=== PATIENT | male | born 1975 | race Caucasian/White ===

== ENCOUNTER → 2019-11-30 | Outpatient (CLI) | payer OTHER ==
--- NOTE | 2019-11-30 13:00 | CARD ---
MR#: [id number] Date of Study: 11/30/2019 Ordering Physician: LIZA CALVILLO, Referring Physician: LIZA CALVILLO, Tech: Zehra Corley APPROVED REPORT EXAM: Two-dimensional and M-mode echocardiogram with Doppler and color Doppler. Other Information Quality : AverageHR: 55bpm Technically limited study due to body habitus. INDICATION Premature ventricular contraction RISK FACTORS Hypertension 2D DIMENSIONS Left Atrium(2D)3.9 (1.6-4.0cm)IVSd1.3 (0.7-1.1cm) Aortic Root(2D)3.7 (2.0-3.7cm)LVDd5.9 (3.9-5.9cm) LVOT Diameter2.3 (1.8-2.4cm)PWd1.3 (0.7-1.1cm) LVDs3.4 (2.5-4.0cm)FS (%) 42.6 % SV127.5 mlLVEF(%)72.8 (>50%) Aortic Valve AoV Peak Diego.96.1cm/sAoV VTI25.8cm AO Peak GR.3.7mmHgLVOT Peak Diego.86.9cm/s LVOT VTI 21.93cmAO Mean GR.2mmHg REGI (VMAX)2.67bk3JHU (VTI)3.51cm2 Mitral Valve MV E Gucceprx90.8cm/sMV DECEL FMQU634cj MV A Hxsbugjg10.1cm/sMV E Mean Gr.1mmHg MV WHI82hjP/A Ratio1.6 MVA (PHT)3.27cm2 TDI E/Lateral E'9.3E/Medial E'10.5 Pulmonary Valve PV Peak Cixptfww23.2cm/sPV Peak Grad.3mmHg Tricuspid Valve TR P. Cipibwat142qj/sRAP YLORTRYJ8dsYy TR Peak Gr.31xkHoLSBW01sqCx Pulmonary Vein S1 Jlwtvbgb54.3cm/sD2 Gammtzru43.9cm/s PVa nhfhbfom666wllh LEFT VENTRICLE The left ventricle is normal size. There is moderate concentric left ventricular hypertrophy. The lef t ventricular systolic function is normal. The Ejection Fraction is 55-60%. There is normal LV segmen zane wall motion. The left ventricular diastolic function and filling is normal for age. RIGHT VENTRICLE The right ventricle is normal size. There is normal right ventricular wall thickness. The right ventr icular systolic function is normal. ATRIA The left atrium size is normal. The right atrium size is normal. The interatrial septum is intact wit h no evidence for an atrial septal defect or patent foramen ovale as noted on 2-D or Doppler imaging. AORTIC VALVE The aortic valve is normal in structure and function. Doppler and Color Flow revealed trace aortic re gurgitation. There is no significant aortic valvular stenosis. MITRAL VALVE The mitral valve is normal in structure and function. There is no evidence of mitral valve prolapse. There is no mitral valve stenosis. Doppler and Color-flow revealed trace mitral regurgitation. TRICUSPID VALVE The tricuspid valve is normal in structure and function. Doppler and Color Flow revealed trace tricus pid regurgitation with an estimated PAP of 31 mmHg. There is no tricuspid valve stenosis. PULMONIC VALVE The pulmonic valve is not well visualized. Doppler and Color Flow revealed no pulmonic valvular regur gitation. GREAT VESSELS The aortic root is normal in size. The IVC is normal in size and collapses >50% with inspiration. PERICARDIAL EFFUSION There is no evidence of significant pericardial effusion. Critical Notification Critical Value: No <Conclusion> The left ventricular systolic function is normal. The Ejection Fraction is 55-60%. There is normal LV segmental wall motion. Trace mitral regurgitation. Trace tricuspid regurgitation with an estimated PAP of 31 mmHg. There is no evidence of significant pericardial effusion. Signed by : Carl Jimenez, Electronically Approved : 11/30/2019 12:59:59
== END | disposition home or self-care (01) ==
LOC: ECHO 08:12
PROVIDERS: ATTEND Internal Medicine Cardiovascular Disease
DX: I11.9 Hypertensive heart disease without heart failure (principal); I49.3 Ventricular premature depolarization
CPT/HCPCS: 93306